=== PATIENT | female | born 1985 | race Caucasian/White ===

== ENCOUNTER 2024-07-10 10:56 | Emergency (ER) | payer SELFPAY ==
[2024-07-10 11:05] VITALS: BP 154/89
--- NOTE | 2024-07-10 11:26 | ED.SKININJ ---
HPI-Injury
General
Chief Complaint: BURN-MINOR
Source: patient
Exam Limitations: none
Time Seen by Provider: 07/10/24 11:17
Nursing documentation reviewed up to this point in time: agreed with
History of Present Illness-Injury
Initial Injury comments:
38-year-old female with no significant past medical history presents for a burn on the top of her left foot and her anterior left thigh. She spilled boiling water on it at home last night. The thigh burn is not blistering. There is a large
bullous blister on the foot burn with surrounding erythema. No significant pain
Past History
Past History
ED Past Medical History: None
ED Past Surgical History: , Gynecological (Tubal ligation) and Other (Gastric bypass 05/2020)
Social History
Tobacco: Former smoker
Alcohol: None
Drug: Marijuana (medical)
Personal: Single
Living: with family
Employment: Employed ([employer])
Family History
Family History: Other (Noncontributory)
Review of Systems
Review of Systems
Allergies reviewed?: Yes
All Other Systems: ROS reviewed and negative except as documented in HPI and ROS
Constitutional: Denies fever or chills
Skin: Reports other (large blister top of left foot, reddened area anterior left thigh)
Phy Exam
Physical Exam
Physical Exam:
PHYSICAL EXAMINATION:
General: no apparent distress, not acutely ill
Neuro: alert and oriented.
Psychiatric: well kept. interactive and cooperative
Musculoskeletal: Moves with ease
Skin: Warm, pink. 4 x 4 cm intact bullous blister distal dorsum left foot with mild surrounding erythema of entire dorsum. 6 x 7 area erythema, no blisters anterior left thigh
Course
Vital Signs
Initial and Last Documented VS:
Initial Vital Signs
Temp Pulse Resp BP Pulse Ox
98.4 F 85 16 154/89 95
07/10/24 11:05 07/10/24 11:05 07/10/24 11:05 07/10/24 11:05 07/10/24 11:05
Last Documented Vital Signs
Temp Pulse Resp BP Pulse Ox
98.4 F 85 16 154/89 95
07/10/24 11:05 07/10/24 11:05 07/10/24 11:05 07/10/24 11:05 07/10/24 11:05
MDM/Problems Addressed
MDM/Problems Addressed:
38-year-old female with no significant past medical history presents for a burn on the top of her left foot and her anterior left thigh. She spilled boiling water on it at home last night. The thigh burn is not blistering. There is a large
bullous blister on the foot burn with surrounding erythema. No significant pain
1st degree burn anterior left thigh, 2nd degree burn/blister dorsum left foot with surrounding mildly erythematous 1st degree burn.
Approximately 4 x 4 cm large bullous blister on the dorsum of the left foot. This should be drained as it is likely to burst on its own due to its location.
Sterile needle used to open the edge of the blister, blister drained, irrigated with NSS, antibiotic ointment and dressing applied.
*Critical Care Note
Total Time (30-74mins, 75-104mins- exclusive of procedures): Not Applicable
ED Attending Note
-
Portions of this chart may have been created with voice recognition software.� Occasional wrong word or��sound alike� substitutions may have occurred due to the inherent limitations of voice recognition software.
Discharge Plan
Departure
Patient Disposition: Home (Routine Discharge)
Date of Disposition: 07/10/24
Time of Disposition: 11:32
Patient with high blood pressure during this ER visit?: No
Condition: Good
Discharge Problem:
First degree burn of left thigh, Second degree burn of left foot
Prescriptions:
No Action
Diflucan
0
sucralfate [Carafate] 100 mg/mL suspension
10 ml PO QID PRN (Reason: upper abdominal pain) Qty: 400 0RF
pantoprazole [Protonix] 40 mg tablet,delayed release (DR/EC)
40 mg PO DAILY Qty: 30 0RF
Referrals:
Marylin Dorantes, DO [Family Provider] -
Activity Restrictions/Additional Instructions:
As we discussed, cleanse the wound daily with mild soap and water, dry well, apply antibiotic ointment and fresh dressing until well-healed.
Seek medical care immediately for signs of infection which may include increasing redness, swelling, pain, pus drainage, red streak up the ankle or fever
Interventions
Interventions:
*Risk Screen - Suicide Last Done: 07/10/24 11:05
*General Assessment Last Done: 07/10/24 11:05
*Neglect/Abuse Screening Last Done: 07/10/24 11:05
*Nursing Disposition Last Done: 07/10/24 11:43
ED-Skin Assessment Last Done: 07/10/24 11:13
Discharge Date and Time
Discharge Date/Time: 07/10/24 11:56
Print Language: [id number]
== END 2024-07-10 11:56 | disposition home or self-care (01) ==
LOC: EMR 10:56
PROVIDERS: EMERGENCY PHYSICIAN Emergency Medicine; FAMILY PHYSICIAN Family Medicine
DX: T25.222A Burn of second degree of left foot, initial encounter (principal); T24.112A Burn of first degree of left thigh, initial encounter; X12.XXXA Contact with other hot fluids, initial encounter; Z87.891 Personal history of nicotine dependence; Z98.84 Bariatric surgery status
CPT/HCPCS: 16020; 99282

== ENCOUNTER 2024-07-13 12:18 | Emergency (ER) | payer SELFPAY ==
[2024-07-13 12:27] VITALS: BP 144/87
--- NOTE | 2024-07-13 13:41 | ED.GENMED ---
History of Present Illness
General
Chief Complaint: Skin Problem
Source: patient
Exam Limitations: none
Time Seen by Provider: 07/13/24 13:39
Nursing documentation reviewed up to this point in time: agreed with
History of Present Illness
History of Present Illness:
Patient is a 38-year-old female who presents to the ER for evaluation. Patient was seen here July 10 for burn. At that time she had a burn to the dorsal aspect of her left foot and left anterior thigh. The burn to her left foot had a blister and
the blister was drained here in the ER. Patient reports since yesterday however she started with increasing redness start extending up her foot. She has not had a fever but does have some chills. denies drainage.
Past History
Past History
ED Past Medical History: None
ED Past Surgical History: , Gynecological (Tubal ligation) and Other (Gastric bypass 05/2020)
Social History
Tobacco: Former smoker
Alcohol: None
Drug: Marijuana (medical)
Personal: Single
Living: with family
Employment: Employed ([employer])
Family History
Family History: Other (Noncontributory)
Review of Systems
Review of Systems
Allergies reviewed?: Yes
All Other Systems: ROS reviewed and negative except as documented in HPI and ROS
Constitutional: Reports no symptoms and chills; Denies fever or fatigue
Skin: Reports other (redness to left foot )
Neurological: Reports no symptoms
Psychiatric: Reports no symptoms
Phy Exam
General Physical Exam
General Presentation: no apparent distress
General age: appears stated age
General Skin: warm and dry
General Habitus: normal
General Mental: alert
General Hydration: appears well hydrated
Neurological Exam
Neurological Exam: alert and oriented x3
Musculoskeletal Exam
Musculoskeletal Exam: other (+ lle with + erythema to dorsal foot slight extension of erythema to dorsal foot region )
Skin Exam
Skin Exam: normal color and warm/dry
Course
Orders/Labs/Results
Orders:
Orders
07/13/24 13:59
Cephalexin Monohydrate [Keflex] 500 mg PO NOW STA
Sulfamethox./Trimethoprim Ds [Bactrim Ds 800 mg/160 mg] 1 tablet PO NOW STA
07/13/24 14:00
Acetaminophen [Tylenol] 1,000 mg PO NOW STA
Vital Signs
Initial and Last Documented VS:
Initial Vital Signs
Temp Pulse Resp BP Pulse Ox
98.9 F 83 16 144/87 99
07/13/24 12:27 07/13/24 12:27 07/13/24 12:27 07/13/24 12:27 07/13/24 12:27
Last Documented Vital Signs
Temp Pulse Resp BP Pulse Ox
98.9 F 83 16 144/87 99
07/13/24 12:27 07/13/24 12:27 07/13/24 12:27 07/13/24 12:27 07/13/24 12:27
Mailhouse Operator consulted with Physician
Mailhouse Operator consulted with physician?: Yes
Name of Physician Consulted: DR Booker
MDM/Problems Addressed
Differential Diagnosis Includes:
Not limited to cellulitis
MDM/Problems Addressed:
Symptoms are consistent with a cellulitis, skin infection from burn. Patient however is nontoxic and afebrile and stable for discharge home with antibiotics with close wound check in the next 2 days. Will prescribe Bactrim and. Reviewed
concerning symptoms and return precautions with patient reviewed the importance of close outpatient follow-up family doctor next 2 days for wound check.
*Pulse Oximetry
Patient hypoxic: no
*Critical Care Note
Total Time (30-74mins, 75-104mins- exclusive of procedures): Not Applicable
ED Attending Note
-
Portions of this chart may have been created with voice recognition software.� Occasional wrong word or��sound alike� substitutions may have occurred due to the inherent limitations of voice recognition software.
Discharge Plan
Departure
Patient Disposition: Home (Routine Discharge)
Date of Disposition: 07/13/24
Time of Disposition: 14:02
Patient with high blood pressure during this ER visit?: Yes
Condition: Fair
Covid-19: Not Applicable
Discharge Problem:
Cellulitis
Instructions: Cellulitis (Skin Infection), Adult (DC), BLOOD PRESSURE
Prescriptions:
New
cephalexin 500 mg capsule
500 mg PO Q6H Qty: 28 0RF
sulfamethoxazole-trimethoprim [Bactrim DS] 800-160 mg tablet
1 tab PO BID Qty: 14 0RF
No Action
Diflucan
0
sucralfate [Carafate] 100 mg/mL suspension
10 ml PO QID PRN (Reason: upper abdominal pain) Qty: 400 0RF
pantoprazole [Protonix] 40 mg tablet,delayed release (DR/EC)
40 mg PO DAILY Qty: 30 0RF
Referrals:
Marylin Dorantes, DO [Family Provider] -
Stand Alone Forms: Return to Work
Activity Restrictions/Additional Instructions:
As discussed you are given first doses of antibiotics here in the ER. Please be sure to take the next doses today as discussed. These medications were sent to your pharmacy. Call your family doctor tomorrow to schedule appointment for Saturday for
wound check and reevaluation. Return to ER if any worsening of symptoms increasing pain swelling red streaks fever chills redness or drainage.
Interventions
Interventions:
*Risk Screen - Suicide Last Done: 07/13/24 13:40
*General Assessment Last Done: 07/13/24 13:41
*Neglect/Abuse Screening Last Done: 07/13/24 13:40
*ED- Fall Risk Assessment Last Done: 07/13/24 13:40
*ED COVID-19 Vaccine History Last Done: 07/13/24 13:40
ED-Skin Assessment Last Done: 07/13/24 13:42
Discharge Date and Time
Print Language: CUBAN
[2024-07-13] MEDS: KEFLEX 500 MG PO (14:12)
[2024-07-13] MEDS: BACTRIM DS 800 MG/160 MG 1 TABLET PO (14:13)
[2024-07-13] MEDS: TYLENOL 1000 MG PO (14:13)
== END 2024-07-13 15:08 | disposition home or self-care (01) ==
LOC: EMR 12:18
PROVIDERS: EMERGENCY PHYSICIAN Student in an Organized Health Care Education/Training Program; FAMILY PHYSICIAN Family Medicine
DX: L03.116 Cellulitis of left lower limb (principal); R03.0 Elevated blood-pressure reading, without diagnosis of hypertension; Z98.84 Bariatric surgery status; Z87.891 Personal history of nicotine dependence; Z88.5 Allergy status to narcotic agent; Z91.048 Other nonmedicinal substance allergy status
CPT/HCPCS: 99283